=== PATIENT | female | born 1970 | race African-American/Black ===

== ENCOUNTER 2020-12-07 03:19 | Observation (INO) | payer OTHER ==
[2020-12-07 03:56] LABS: Basophils # (A) 0.1 k/uL (0-0.2); Basophils % (A) 1 %; Eosinophils # (A) 0.4 k/uL (0-0.7); Eosinophils % (A) 3 %; HCT 41.2 % (34.0-46.0); HGB 13.9 gm/dL (11.4-16.0); Lymphocytes # (A) 3.7 k/uL (1.0-4.8); Lymphocytes % (A) 31 %; MCH 28.8 pg (25.0-35.0); MCHC 33.6 g/dL (31.0-37.0); MCV 85.7 fL (80.0-100.0); Mean Platelet Volume 7.2; Monocytes # (A) 0.6 k/uL (0-1.0); Monocytes % (A) 5 %; Neutrophils # (A) 7.2 k/uL (1.3-7.7); Neutrophils % (A) 59 %; Platelet Count 310 k/uL (150-450); RBC 4.81 m/uL (3.80-5.40); RDW 12.7 % (11.5-15.5); WBC 12.1 k/uL (3.8-10.6)
[2020-12-07 04:05] LABS: Anion Gap 6 mmol/L; Blood Urea Nitrogen 12 mg/dL (7-17); Carbon Dioxide 26 mmol/L (22-30); Chloride 105 mmol/L (98-107); Glucose 105 mg/dL (74-99); Sodium 137 mmol/L (137-145)
[2020-12-07 04:06] LABS: ALT 13 U/L (4-34); AST 25 U/L (14-36); African American GFR (CKD) >90 (>60 ml/min/1.73 sqM); Albumin 4.2 g/dL (3.5-5.0); Alkaline Phosphatase 78 U/L (38-126); Calcium 9.7 mg/dL (8.4-10.2); Lipase 82 U/L (23-300); Non-African American GFR(CKD) >90 (>60 ml/min/1.73 sqM); Total Bilirubin 0.5 mg/dL (0.2-1.3); Total Protein 6.9 g/dL (6.3-8.2)
--- NOTE | 2020-12-07 04:30 | ED ---
Chest Pain HPI - General Chief Complaint: Chest Pain Stated Complaint: Chest Pain Time Seen by Provider: 12/07/20 03:21 Source: patient, EMS, RN notes reviewed, old records reviewed Mode of arrival: EMS Limitations: no limitations - History of Present Illness MD Complaint: chest pain, other (PVCs) -: hour(s) Onset: during rest, awoke with symptoms Pain Location: substernal Pain Radiation: none Severity: mild Severity scale (1-10): 3 Quality: tightness, heaviness Consistency: constant Improves With: nothing Worsens With: nothing Context: other (none) Anginal Symptoms: nausea, sense of impending doom Other Symptoms: palpitations - Related Data Allergies Allergy/AdvReac Type Severity Reaction Status Date / Time No Known Allergies Allergy Verified 12/07/20 03:26 Review of Systems ROS Statement: Those systems with pertinent positive or pertinent negative responses have been documented in the HPI. ROS Other: All systems not noted in ROS Statement are negative. EKG Findings - EKG Comments: EKG Findings:: EKG is sinus rhythm 88, IA 120 QRS 84 QTc 433 Past Medical History Past Medical History: No Reported History History of Any Multi-Drug Resistant Organisms: None Reported Additional Past Surgical History / Comment(s): cyst removed from ovaries Past Psychological History: Depression Smoking Status: Current every day smoker Past Alcohol Use History: Occasional Past Drug Use History: None Reported General Exam Limitations: no limitations General appearance: alert, in no apparent distress Head exam: Present: atraumatic, normocephalic, normal inspection Eye exam: Present: normal appearance, PERRL, EOMI. Absent: scleral icterus, conjunctival injection, periorbital swelling ENT exam: Present: normal exam, mucous membranes moist Neck exam: Present: normal inspection. Absent: tenderness, meningismus, lymphadenopathy Respiratory exam: Present: normal lung sounds bilaterally. Absent: respiratory distress, wheezes, rales, rhonchi, stridor Cardiovascular Exam: Present: regular rate, normal rhythm, normal heart sounds. Absent: systolic murmur, diastolic murmur, rubs, gallop, clicks GI/Abdominal exam: Present: soft, normal bowel sounds. Absent: distended, tenderness, guarding, rebound, rigid Extremities exam: Present: normal inspection, full ROM, normal capillary refill. Absent: tenderness, pedal edema, joint swelling, calf tenderness Back exam: Present: normal inspection Neurological exam: Present: alert, oriented X3, CN II-XII intact Psychiatric exam: Present: normal affect, normal mood Skin exam: Present: warm, dry, intact, normal color. Absent: rash Course Vital Signs 12/07/20 03:26 Temperature 98.6 F Pulse Rate 90 Respiratory 16 Rate Blood Pressure 126/86 O2 Sat by Pulse 100 Oximetry - Reevaluation(s) Reevaluation #1: 12/07/20 05:07 medical record is reviewed Reevaluation #2: 12/07/20 05:07 patient still having PVCs Reevaluation #3: 12/07/20 05:08 Patient informed of results and questions are answered Chest Pain MDM - MDM 50 female to the ER for evaluation. Patient presents today for evaluation regards to chest pain and PVCs. Patient be admitted for cardiology observation Disposition Clinical Impression: Atypical chest pain, Chest pain, PVC (premature ventricular contraction) Disposition: ADMITTED IP TO THIS HOSP Condition: Good Is patient prescribed a controlled substance at d/c from ED?: No Referrals: Jeffy Brown MD [Primary Care Provider] - 1-2 days
--- NOTE | 2020-12-07 04:39 | XR ---
EXAM: XR Chest, 2 Views CLINICAL HISTORY: ITS.REASON XR Reason: Chest Pain TECHNIQUE: Frontal and lateral views of the chest. COMPARISON: No relevant prior studies available. FINDINGS: Lungs: No focal consolidation. The pulmonary vasculature demonstrates no significant radiographic abnormality. Pleural space: Unremarkable. No pneumothorax. No large pleural effusion. Heart: Unremarkable. No cardiomegaly. Mediastinum: Unremarkable. No significant abnormality identified. The trachea is midline. Bones/joints: Unremarkable. IMPRESSION: No focal consolidation or acute cardiopulmonary process identified.
[2020-12-07 04:43] LABS: D-Dimer <0.17 mg/L FEU (<0.60); INR 0.9 (<1.2); Partial Thromboplastin Time 23.2 sec (22.0-30.0); Prothrombin Time 9.9 sec (9.0-12.0)
[2020-12-07] MEDS ORDERED: METOPROLOL TARTRATE 5 MG/5 ML VIAL IVP STA (05:05)
[2020-12-07] MEDS ORDERED: NITROGLYCERIN SL TABS 0.4 MG TAB SUBLINGUAL PRN (05:05)
[2020-12-07] MEDS ORDERED: ASPIRIN 81 MG PO STA (05:05)
[2020-12-07] MEDS: SODIUM CHLORIDE 0.9% 1,000 ML IV SCH ×2 (05:17→11:12)
[2020-12-07] MEDS: METOPROLOL TARTRATE 25 MG TAB PO SCH ×2 (08:21→21:39)
[2020-12-07] MEDS: NAPROXEN 250 MG TAB PO SCH ×2 (08:21→21:38)
--- NOTE | 2020-12-07 09:41 | CONS ---
CONSULTATION Heidi Hanks is a 50-year-old lady who smokes about half to one pack daily. She has no family history of CAD. She has no hypertension or diabetes. She takes an aspirin a day and melatonin at home. She works as a real estate transaction coordinator. She came into the hospital mainly complaining of discomfort in the anterior chest. The pain is very focal. It is almost at the junction of the sternum and the 4th rib. There is focal tenderness also. She does not recall doing any heavy physical work with her arms in the last few days. She also feels a skipped beat as well. So, her main complaint is palpitations occasionally with a sharp focal pain in the left anterior chest. This pain can occur at any time, which seems to be positional and there is also focal tenderness. Palpitations are random. No associated dizziness or lightheadedness or syncope. She is a reasonably active lady. PAST MEDICAL HISTORY: Unremarkable for hypertension, diabetes, myocardial infarction or CVA. She has history of some ovarian cyst surgery, details unclear. CORONARY RISK FACTORS: Include smoking as a major risk factor. MEDICATIONS: She takes an aspirin and melatonin. PHYSICAL EXAMINATION: On examination, blood pressure is 144/84, pulse rate is 78 per minute and regular. HEENT unremarkable. Fundus was not examined by me. Neck is supple. There is no JVD. I do not hear a carotid bruit. There is no thyromegaly. Heart exam reveals S1, S2 heard normally. No rub, murmur or gallop. Lungs are clear. Abdomen is soft, nontender. Lower extremities reveal normal pulses. No edema. Central nervous system is normal. EKG revealed sinus rhythm, isolated PVC, no acute changes. LABORATORY DATA: Reveals that the initial troponin is normal. No other abnormal laboratory data is seen. D-dimer is normal. IMPRESSION: 1. Musculoskeletal atypical chest pain with focal tenderness. 2. Isolated PVCs with palpitations. 3. History of smoking. RECOMMENDATIONS: I am recommending that we will give her some nonsteroidals in the form of Naprosyn 250 mg b.i.d., metoprolol 25 mg b.i.d., aspirin 81 mg daily. Increase activity and see how she does. We will check additional troponins and continue to monitor her for any arrhythmia and based on clinical course I will make further recommendations. If she has no elevation of troponin and her PVCs are isolated were and non-repetitive, I may discharge her and see her as an outpatient for stress test. I discussed my thoughts in detail with the patient. Thank you very much for the consult. EHSAN / ESTEBAN: [id number] /
[2020-12-07] MEDS ORDERED: MELATONIN 5 MG TABLET PO PRN (10:18)
--- NOTE | 2020-12-07 11:16 | P.HPIM ---
History of Present Illness H&P Date: 12/07/20 Chief Complaint: chest pain This is a 50-year-old female patient who presented to the ER with complaints of chest pain. Patient reports that has been occurring over the past 3 days intermittently with associated nausea vomiting shortness breath. Patient feels like it's related to a palpitation followed by pain. Patient denies any history of heart attack for herself or close family members. Patient does have past medical history of depression and nicotine dependence. Patient reports she smokes approximately 1 pack per day. Chest x-ray was completed showing no focal consolidation or acute cardiopulmonary process identified. EKG completed showing sinus rhythm with occasional PVCs. Patient was evaluated by cardiology services and started on metoprolol along with naproxen for possible musculoskeletal origin. Recommending patient continued to be monitored for f urther PVCs and will decide if patient requires further investigation with stress test. Patient is currently walking the halls. Patient reports no active chest pain. Patient denies shortness of breath. Patient denies nausea vomiting or diarrhea. Patient denies any urinary burning or frequency Review of Systems Please refer to HPI otherwise unremarkable Past Medical History Past Medical History: No Reported History History of Any Multi-Drug Resistant Organisms: None Reported Additional Past Surgical History / Comment(s): cyst removed from ovaries Past Psychological History: Depression Smoking Status: Current every day smoker Past Alcohol Use History: Occasional Past Drug Use History: None Reported Medications and Allergies Home Medications Medication Instructions Recorded Confirmed Type Aspirin 325 mg PO DAILY PRN 12/07/20 12/07/20 History Melatonin 10 mg PO HS PRN 12/07/20 12/07/20 History Allergies Allergy/AdvReac Type Severity Reaction Status Date / Time No Known Allergies Allergy Verified 12/07/20 07:42 Physical Exam Vitals: Vital Signs Temp Pulse Pulse Resp BP BP Pulse Ox 12/07/20 07:51 97.9 F 71 19 120/78 99 12/07/20 06:59 98.7 F 67 18 127/97 98 12/07/20 05:15 79 16 146/90 100 12/07/20 03:26 98.6 F 90 16 126/86 100 Intake and Output 12/06/20 12/07/20 12/07/20 22:59 06:59 14:59 Other: Voiding Method Toilet Weight 73.482 kg 73.482 kg Head normocephalic Neck supple Lungs clear to auscultation bilaterally no wheezing or crackles Heart regular rate and rhythm S1-S2, no rub or gallop Abdomen is soft nontender nondistended positive bowel sounds no hepatosplenomegaly Extremities no edema Neuro alert and orientated to 3 Results CBC & Chem 7: 12/07/20 03:47 12/07/20 03:47 Labs: Abnormal Lab Results - Last 24 Hours (Table) 12/07/20 12/07/20 Range/Units 03:47 03:47 WBC 12.1 H (3.8-10.6) k/uL Glucose 105 H (74-99) mg/dL Thrombosis Risk Factor Assmnt - Choose All That Apply Each Factor Represents 1 point: Age 41-60 years Thrombosis Risk Factor Assessment Total Risk Factor Score: 1 Thrombosis Risk Factor Assessment Level: Low Risk Assessment and Plan Assessment: 1. Chest pain. Troponins negative times. Patient was evaluated by cardiology services started on metoprolol and aspirin will continue to monitor. Possible stress test in a.m. 2. Episodes of PVC with palpitations. Patient started on metoprolol per cardiology TSH level ordered 3. History of depression 4. History of nicotine dependence. Patient's date she smokes approximately 1 pack per day patient educated greater than 3 minutes on smoking cessation. Nicotine patch ordered Time with Patient: Greater than 30
[2020-12-07] MEDS ORDERED: NICOTINE 21MG/24HR PATCH TRANSDERM SCH (11:37)
[2020-12-07 11:46] LABS: ALT 13 U/L (4-34); AST 24 U/L (14-36); African American GFR (CKD) >90 (>60 ml/min/1.73 sqM); Albumin 4.2 g/dL (3.5-5.0); Albumin/Globulin Ratio 1.5; Alkaline Phosphatase 82 U/L (38-126); Anion Gap 7 mmol/L; Blood Urea Nitrogen 11 mg/dL (7-17); Calcium 9.9 mg/dL (8.4-10.2); Carbon Dioxide 23 mmol/L (22-30); Chloride 109 mmol/L (98-107); Globulin 2.8 g/dL; Glucose 133 mg/dL (74-99); Non-African American GFR(CKD) 90 (>60 ml/min/1.73 sqM); Potassium 4.2 mmol/L (3.5-5.1); Sodium 139 mmol/L (137-145); Total Bilirubin 0.8 mg/dL (0.2-1.3)
[2020-12-07] MEDS: NICOTINE 14MG/24HR PATCH TRANSDERM SCH (12:06)
[2020-12-07 12:08] LABS: Basophils # (A) 0.1 k/uL (0-0.2); Basophils % (A) 0 %; Eosinophils # (A) 0.2 k/uL (0-0.7); Eosinophils % (A) 1 %; HCT 42.1 % (34.0-46.0); HGB 13.6 gm/dL (11.4-16.0); Lymphocytes # (A) 2.6 k/uL (1.0-4.8); Lymphocytes % (A) 20 %; MCH 27.9 pg (25.0-35.0); MCHC 32.2 g/dL (31.0-37.0); MCV 86.5 fL (80.0-100.0); Mean Platelet Volume 7.5; Monocytes # (A) 0.6 k/uL (0-1.0); Monocytes % (A) 4 %; Neutrophils # (A) 9.9 k/uL (1.3-7.7); Neutrophils % (A) 74 %; Platelet Count 333 k/uL (150-450); RBC 4.86 m/uL (3.80-5.40); WBC 13.4 k/uL (3.8-10.6)
[2020-12-08] MEDS: SODIUM CHLORIDE 0.9% 1,000 ML IV SCH (01:48)
[2020-12-08 02:45] VITALS: RESP 16; TEMP 97.8
[2020-12-08] MEDS: NAPROXEN 250 MG TAB PO SCH (08:41)
[2020-12-08 08:54] VITALS: BP 117/75; PULSE 72
[2020-12-08] MEDS ORDERED: ASPIRIN 325 MG TAB PO SCH (09:00)
[2020-12-08] MEDS ORDERED: ASPIRIN 81 MG PO SCH (09:00)
[2020-12-08 09:19] LABS: Chol/HDL Ratio 3.74; LDL Cholesterol,Calculated 143.8 mg/dL (0.0-131.0); VLDL Calculation 23.2 mg/dL (5.00-40.00)
[2020-12-08] MEDS: METOPROLOL TARTRATE 25 MG TAB PO SCH (09:32)
[2020-12-08] MEDS: NICOTINE 14MG/24HR PATCH TRANSDERM SCH (09:32)
--- NOTE | 2020-12-08 10:42 | P.PN ---
Subjective This is a pleasant 50-year-old female past medical history significant for nicotine dependence (smokes 1.5 ppd). She follows in the office with Dr. Roman. We have been asked to see in consultation for chest pain. Patient came to the hospital mainly complaining of palpitations, discomfort in the anterior chest, pain is very focal, focal tenderness was noted also. She also feels as if her heart skips a beat. Patient was given naproxen for musculoskeletal chest pain, and started on metoprolol 25 mg twice a day, aspirin 81 mg daily. Troponins were negative 3. EKG revealed sinus rhythm with occasional premature ventricular complexes, no acute STT wave abnormalities. Chest x-ray with no acute cardio pulmonary processes identified. Patient is seen and examined at bedside in no acute distress. Telemetry reviewed- sinus rhythm with occasional PVCs. Laboratory data reviewed from yesterday, sodium 139, potassium 4.2, creatinine 0.77, BNP 89, magnesium 2.0, triglycerides 116, cholesterol 228, LDL 143, HDL 61, TSH within normal limits, Covid 19 negative Patient is currently being maintained on metoprolol 25 mg twice a day and aspirin 81 mg daily. PHYSICAL EXAMINATION Blood pressure 117/75 heart rate 72 afebrile and maintaining oxygen saturation on []. CONSTITUTIONAL: No apparent distress. HEENT: Head is normocephalic. Pupils are equal, round. Sclerae anicteric. Mucous membranes of the mouth are moist. No JVD. No carotid bruit. CHEST EXAMINATION: Lungs are clear to auscultation. No chest wall tenderness is noted on palpation or with deep breathing. HEART EXAMINATION: Regular rate and rhythm. S1, S2 heard. No murmurs, gallops or rub. ABDOMEN: Soft, nontender. Positive bowel sounds. EXTREMITIES: 2+ peripheral pulses, no lower extremity edema and no calf tenderness. NEUROLOGIC EXAMINATION: Patient is awake, alert and oriented x3. ASSESSMENT Palpitations Nicotine dependence Chest pain, atypical- acute coronary event has been ruled out. troponin negative x 3. Hyperlipidemia- ASCVD risk low 2.9% PLAN -Patient is scheduled for a stress echo tomorrow 12/09 in the office and a 2D echo on 12/12. Ok to discharge patient and to follow up in the outpatient office tomorrow for outpatient testing. -Recommend emphasis on lifestyle with heart healthy diet and exercise to reduce risk factors. -Continue metoprolol 25mg BID and aspirin 81mg daily. Nurse Practitioner note has been reviewed, I agree with a documented findings and plan of care. Patient was seen and examined. Objective - Vital Signs Vital signs: Vital Signs Temp 97.8 F 12/08/20 07:00 Pulse 72 12/08/20 08:00 Resp 16 12/08/20 08:00 BP 117/75 12/08/20 07:00 Pulse Ox 100 12/08/20 07:00 Intake & Output 12/07/20 12/08/20 12/08/20 18:59 06:59 18:59 Intake Total 1600 Balance 1600 Weight 73.482 kg Intake: Intake, IV Titration 1600 Amount Sodium Chloride 0.9% 1, 1600 000 ml @ 100 mls/hr IV . Q10H [facility] Rx#:[id number] Other: Voiding Method Toilet Toilet Toilet # Voids 2 1 1 - Labs CBC & Chem 7: 12/07/20 11:12 12/07/20 11:12 Labs: Abnormal Lab Results - Last 24 Hours (Table) 12/07/20 12/07/20 12/08/20 Range/Units 11:12 11:12 05:27 WBC 13.4 H (3.8-10.6) k/uL Neutrophils # 9.9 H (1.3-7.7) k/uL Chloride 109 H (98-107) mmol/L Glucose 133 H (74-99) mg/dL Cholesterol 228 H (0-200) mg/dL LDL Cholesterol, Calc 143.8 H (0.0-131.0) mg/dL HDL Cholesterol 61.0 H (40.0-60.0) mg/dL
== END 2020-12-08 12:32 ==
LOC: EC 03:19 → 6NMEDSUR 05:05
PROVIDERS: ADMIT Internal Medicine; ATTEND Internal Medicine
DX: R07.89 Other chest pain (principal); R00.2 Palpitations; R11.2 Nausea with vomiting, unspecified; R06.02 Shortness of breath; E78.5 Hyperlipidemia, unspecified; I49.3 Ventricular premature depolarization; F32.9 Major depressive disorder, single episode, unspecified; F17.210 Nicotine dependence, cigarettes, uncomplicated; Z79.82 Long term (current) use of aspirin; Z20.822 Contact with and (suspected) exposure to COVID-19
CPT/HCPCS: 93005 ×2; 96374; 99285; 36415; 94760; 85379; 83880; 80061; 80053; 84443; 83690; 83735; 84484; 85025; 85610; 85730; 87635; 71046; G0378 ×2; S4990 ×2

== ENCOUNTER → 2020-12-22 | Day surgery (SDC) | payer OTHER ==
[~2020-12-22] MED LIST: ALPRAZolam 0.25 MG TAB PO PRN; ALPRAZolam 0.5 MG TAB PO PRN; ASPIRIN 325 MG TAB ONE; ASPIRIN 325 MG TAB PO STA; ATORVASTATIN 80 MG TAB PO STA; HEPARIN SODIUM 1,000 UN/ML (10ML VL) IV ONE; HEPARIN SODIUM 1,000 UN/ML (10ML VL) ONE; HEPARIN SODIUM,PORCINE 10,000 UNIT in SODIUM CHLORIDE 0.9% 1,000 ML IRRIGATION PRN; HEPARIN SODIUM,PORCINE 2,500 UNIT in SODIUM CHLORIDE 0.9% 250 ML IRRIGATION PRN; IOPAMIDOL-370 125ML BTL INJ ONE; LIDOCAINE 1% INJ 10MG/ML (20 ML MDV) ONE; LIDOCAINE 1% INJ 10MG/ML (20 ML MDV) SQ ONE; MIDAZOLAM 2 MG/2 ML VIAL IV ONE; NITROGLYCERIN SL TABS 0.4 MG TAB SUBLINGUAL PRN; RX INFO: IV CONTRAST WAS GIVEN 1 EACH MISC MISCELLANE PRN; SODIUM CHLORIDE 0.9% 1,000 ML IV ONE; SODIUM CHLORIDE 0.9% 1,000 ML IV SCH; SODIUM CHLORIDE 0.9% 1,000 ML in EMPTY BAG 1 BAG IV ONE; VERAPAMIL 2.5 MG/ML 2 ML AMP ONE; fentaNYL (PF) 50 MCG/ML 2 ML AMP IV ONE; fentaNYL (PF) 50 MCG/ML 2 ML AMP ONE
[2020-12-22 07:32] VITALS: RESP 16; TEMP 96.9
[2020-12-22] MEDS: VERAPAMIL SYRINGE (5 MG/10 ML) INTRAARTER ONE ×2 (07:45→07:57)
--- NOTE | 2020-12-22 08:07 | P.CARDCATH ---
Description of Procedure: PROCEDURES PERFORMED: Left heart catheterization, bilateral coronary angiography INDICATION: Unstable angina, positive stress test HISTORY: Patient is a pleasant 50-year-old female with history of hypertension, palpitations who has been having increased episodes of chest pain which can occur at rest and occasionally with exertion, palpitations, lightheadedness or the past 1-1/2 months. Patient had workup with an event monitor showing only PVCs. She also had a stress test where she had exercise-induced chest pain as well as inferior hypokinesis. Therefore heart catheterization was recommended. CONSENT:I have discussed the risks, benefits and alternative therapies for the above-mentioned procedure and for both sedation/analgesia as well as necessary blood product administration, if indicated, as they pertain to this patient. The patient has indicated understanding and acceptance of the risks and procedures discussed. PROCEDURE: After the risks, benefits and alternatives of the above mentioned procedure explained in detail with the patient, informed consent was obtained. Patient was taken to the catheterization lab and prepped and draped in usual fashion. 1% lidocaine was used to anesthetize the right radial artery. A 6- Samoan sheath was placed in the right radial artery using Seldinger technique. Left coronary angiography was performed with a 5-Samoan JL 3.5 catheter and right coronary angiography was performed with a 5-Samoan JR5 catheter in various views. A 5-Samoan FR5 catheter was inserted into the left ventricle and pressure measurements were obtained. The right radial sheath was removed and a TR band was placed with hemostasis achieved. The patient tolerated the procedure well. Patient was transported back to the post catheterization holding area in stable condition. Conscious Sedation: Patient was monitored under the direct supervision of vision of myself for conscious sedation using Versed and fentanyl for a total duration of 17 minutes HEMODYNAMICS: Ao: 132/78 LV: 130/7, LVEDP 15mmHg SELECTIVE CORONARY ARTERIOGRAPHY: LEFT MAIN: The left main is a large caliber vessel which trifurcates into the LAD, ramus and circumflex. There is no significant stenosis. LEFT ANTERIOR DESCENDING CORONARY ARTERY: LAD is a large caliber vessel which wraps around to the apex. There is no significant stenosis. RAMUS INTERMEDIUS: The ramus is a small to moderate caliber vessel with no significant stenosis. LEFT CIRCUMFLEX CORONARY ARTERY: Left circumflex is a moderate caliber vessel without significant stenosis. RIGHT CORONARY ARTERY: The right coronary artery is a large caliber vessel which gives off a PDA and PLV branch and is the dominant vessel. There is no significant stenosis. FINAL IMPRESSION: 1. Normal coronary arteries as described above. 2. Normal left sided filling pressures. PLAN: 1. Aggressive risk factor modification per most recent ACC/AHA guidelines. 2. Follow-up in the office in 1-2 weeks.
[2020-12-22 13:27] VITALS: BP 110/68; PULSE 88
== END ==
LOC: CATHCVL 06:31
PROVIDERS: ATTEND Internal Medicine
DX: I20.0 Unstable angina (principal); I10 Essential (primary) hypertension; R00.2 Palpitations; R07.2 Precordial pain; R42 Dizziness and giddiness; I49.3 Ventricular premature depolarization; F17.210 Nicotine dependence, cigarettes, uncomplicated; R94.39 Abnormal result of other cardiovascular function study; E78.5 Hyperlipidemia, unspecified; R06.00 Dyspnea, unspecified; Z79.899 Other long term (current) drug therapy
CPT/HCPCS: 93458; 81025; C1894; C1887; C1769; J2250; J2001; J3010; J1644; Q9967

== ENCOUNTER → 2020-12-23 | Outpatient (CLI) | payer OTHER ==
--- NOTE | 2020-12-23 13:31 | MM ---
Reason for exam: screening (asymptomatic). Baseline mammogram. History: Patient is postmenopausal. Family history of breast cancer in mother at age 60. Physical Findings: Nurse did not find any significant physical abnormalities on exam. MG Screening Mammo w CAD Bilateral CC and MLO view(s) were taken. There are scattered fibroglandular densities. Finding: There are indeterminate heterogeneous calcifications in the lower inner quadrant, middle position of the right breast. These results were verbally communicated with the patient and result sheet given to the patient on 12/23/20. ASSESSMENT: Incomplete: need additional imaging evaluation, BI-RAD 0 RECOMMENDATION: Special view mammogram of the right breast.
--- NOTE | 2020-12-23 13:33 | MM ---
Reason for exam: additional evaluation requested from abnormal screening. History: Patient is postmenopausal. Family history of breast cancer in mother at age 60. Physical Findings: Breast exam preformed at baseline screening. MG Work Up Mamm w CAD RT CC with magnification, LM with magnification, and LM view(s) were taken of the right breast. Finding: There are typically benign coarse heterogeneous in skin, grouped/clustered calcifications in the middle position of the right breast. These results were verbally communicated with the patient and result sheet given to the patient on 12/23/20. ASSESSMENT: Benign, BI-RAD 2 RECOMMENDATION: Return to routine screening mammogram schedule for both breasts.
== END | disposition home or self-care (01) ==
LOC: RADMAMWWP 10:00
PROVIDERS: ATTEND Internal Medicine
DX: Z12.31 Encounter for screening mammogram for malignant neoplasm of breast (principal); Z80.3 Family history of malignant neoplasm of breast
CPT/HCPCS: 77065; 77067